=== PATIENT | female | born 1975 | race Asian ===

== ENCOUNTER → 2025-07-25 10:46 | Outpatient (CLI) | payer OTHER, SELFPAY ==
--- NOTE | 2025-07-25 12:33 | DIAB.INIT ---
Initial Diabetes Education Assessment Name: Tawnya Rogers Date: 07/25/25 Time: 0841b Dx: Type II Diabetes Provider: Dipika Preferred Learning Style: Reading, Watching, Listening, Doing Hope presents for initial Dm visit. Endorses PMH of DM x 2.5 years. Reports recent hgA1c of 7.2% in 05/2025. At that time was started on SGLT2i. Denies any SE or concerns, though does reports she would prefer to make diet changes to avoid medications. She is of [place] background and cooks culturally related foods. One main concern for her are parties with [place] foods and high CHO intake. Since last HgA1c, she has reduced CHO intake. Cut out most rice intake. Switched to brown rice in moderation. Has questions about food, medications, and BG monitoring. Diet recall indicates 3 meals and 1-2 snacks per day. Meals range from 0-45g CHO. Eating nuts or fruit for snacks. Eating veggies BID. Due for labs based on pt report of last hgA1c. No PCP appt scheduled per report. Anthropometrics: Ht: 5'1 Wt: 168# reported Weight history: Physical Activity: maribeth at home 5 days per week and walks 4-5 days per week for 60 mins Self-Monitoring Blood Glucose: checking q other day FBG, some pc readings. None for review today. Reports FBG of 120, 125, 127, 135mg/dl recently and one pc reading after lunch of 124mg/dl. Declined CGM sample today. Date Pre Post Pre Post Pre Post HS Diabetes Medications: 1000mg Metformin ER BID 10mg Jardiance Past Medical History: Reported HTN, HLD Pertinent Labs: HgA1c: 7.2% 05/2025 reported Intervention: This participant was very receptive. Provided appropriate educational handouts. Discussed the following topics: Completed intake assessment. Discussed barriers to care. Pathophysiology of type 2 diabetes HgA1c, its correlation to blood glucose numbers, and rationale for goal Importance of self-monitoring, how often, and when to check. Suggested checking at different times to evaluate meals Plate Method, impact of macronutrients on blood sugar, meal timing, carbohydrate counting, pairing macronutrients and spreading out carbohydrates for better blood glucose management General recommended servings for carbohydrates at meals and snacks Role of physical activity Eating at celebrations Created SMART goals for patient self-care and success. Goals: Pair CHO and protein for snacks Keep CHO to 1c or less at meals Check a few pc readings Make a PCP appt Follow-up: [facility] follow-up in 3-4 weeks Arline Lema RDN, [facility] Certified Diabetes Care and Associate Professor Of Biostatistics P: [phone] Thank you for this referral
== END ==
PROVIDERS: PCP Nurse Practitioner Family; Referring Provider Nurse Practitioner Family
DX: E11.9 Type 2 diabetes mellitus without complications (principal); Z71.3 Dietary counseling and surveillance; Z79.84 Long term (current) use of oral hypoglycemic drugs
CPT/HCPCS: G0108

== ENCOUNTER → 2025-08-31 09:42 | Outpatient (CLI) | payer OTHER, SELFPAY ==
--- NOTE | 2025-08-31 10:05 | DIAB.FU ---
Follow-up Diabetes Education Assessment Name: Tawnya Rogers Date: 08/31/25 Time: a Dx: Type II Diabetes Provider: Dipika Preferred Learning Style: Reading, Watching, Listening, Doing Hope presents for Dm visit. Endorses PMH of DM x 2.5 years. Reports recent hgA1c of 7.2% in 05/2025. At that time was started on SGLT2i. Denies any SE or concerns, though does reports she would prefer to make diet changes to avoid medications. Just back from [place]. Reports current diet feels sustainable. Tries to avoid most carbs, ie rice. While on vacation, limited rice to 1c and BG was in goal. Her is also making diet changes, which is helpful. Due for labs and PCP visit. Called PCP for visit but they asked her to call back in Aug for a Dec visit. Plans to do this. Eye: UTD Dental: UTD Feet: few times per week, moisturizing feet a few times per week, wears slippers. sometimes heel is dry. Anthropometrics: Ht: 5'1 Wt: 165# reported 08/2025 168# reported 07/2025 Physical Activity: maribeth 30-60min at home 7 days per week (which is more than previous visit) and walks 3 days per week for 60 mins. Also walking 15 min BID at work. Self-Monitoring Blood Glucose: Checking a few different times per out last visit. FBG 114-135, with one outlier of 170mg/dl. Pre meal numbers 97-117 and postprandial 117-137mg/dl, in goal. Diabetes Medications: 1000mg Metformin ER BID 10mg Jardiance Past Medical History: Reported HTN, HLD Pertinent Labs: HgA1c: 7.2% 05/2025 reported Intervention: This participant was very receptive. Provided appropriate educational handouts. Discussed the following topics: BG review and goals Diet changes and sustainability DM complication risk reduction: eyes, dental, feet Created SMART goals for patient self-care and success. Goals: Pair CHO and protein for snacks- met Keep CHO to 1c or less at meals - met Check a few pc readings - met Make a PCP appt - in progress Check feet daily- new Call PCP for visit and labs- continue Follow-up: [facility] follow-up prn. Encouraged her to call or message for f/u needs prn. She agreed. Arline Lungren, RDN, [facility] Certified Diabetes Care and Media Senior Recruiter P: [phone] Thank you for this referral
== END ==
LOC: DIET 09:45
PROVIDERS: PCP Nurse Practitioner Family; Referring Provider Nurse Practitioner Family
DX: E11.9 Type 2 diabetes mellitus without complications (principal); Z71.3 Dietary counseling and surveillance; Z79.84 Long term (current) use of oral hypoglycemic drugs
CPT/HCPCS: G0108